=== PATIENT | male | born 1975 | race Caucasian/White ===

== ENCOUNTER 2019-01-08 17:01 | Emergency (ER) | payer OTHER ==
[~2019-01-08] VITALS: Ht 172.7 cm; Wt 65.8 kg
[2019-01-08] MEDS ORDERED: MIRALAX17 GM (17:58)
== END 2019-01-08 18:44 | disposition home or self-care (01) ==
LOC: ER 17:01
DX: S91.321A Laceration with foreign body, right foot, initial encounter (principal); W45.8XXA Other foreign body or object entering through skin, initial encounter; Y93.89 Activity, other specified; Y92.488 Other paved roadways as the place of occurrence of the external cause; Y99.8 Other external cause status

== ENCOUNTER 2019-01-15 09:29 | Emergency (ER) | payer OTHER ==
[~2019-01-15] VITALS: Ht 172.7 cm; Wt 65.8 kg
[~2019-01-15 09:29] MED LIST: MIRALAX17 GM
== END 2019-01-15 10:41 | disposition home or self-care (01) ==
LOC: ER 09:29
DX: Z48.02 Encounter for removal of sutures (principal)

== ENCOUNTER → 2021-06-03 | Outpatient (CLI) | payer OTHER | END | disposition home or self-care (01) | LOC: RAD 15:12 | PROVIDERS: ATTEND Physical Medicine & Rehabilitation | DX: M54.6 Pain in thoracic spine (principal); M54.59 Other low back pain ==